=== PATIENT | male | born 1990 | race Caucasian/White ===

== ENCOUNTER 2019-03-24 14:43 | Outpatient (CLI) | payer BC ==
--- NOTE | 2019-03-24 15:16 | RAD ---
XR Shoulder Lt 3 View STANDARD HISTORY: Acute pain of the left shoulder FINDINGS: No fracture or dislocation is identified.
== END 2019-03-24 14:44 | disposition home or self-care (01) ==
LOC: SCSRAD 14:43
PROVIDERS: ATTEND Nurse Practitioner Family
DX: M25.512 Pain in left shoulder (principal)

== ENCOUNTER → 2019-10-14 | Day surgery (SDC) | payer BC ==
[~2019-10-14] MED LIST: Rabies Vaccine Human 2.5 UNITS VIAL IM ONE
== END ==
LOC: ER/OP 12:31 → EDSTATUS 13:35 → ER/OP 13:35
PROVIDERS: ATTEND Family Medicine
DX: Z29.14 Encounter for prophylactic rabies immune globulin (principal); W54.0XXA Bitten by dog, initial encounter
CPT/HCPCS: 90376; 90471; 90472; 90675

== ENCOUNTER → 2019-10-17 | Day surgery (SDC) | payer BC | LOC: ER/OP 11:19 | DX: Z29.14 Encounter for prophylactic rabies immune globulin (principal); M25.512 Pain in left shoulder | CPT/HCPCS: 90471; 90675 ==